=== PATIENT | female | born 1935 | race African-American/Black ===

== ENCOUNTER → 2017-09-18 | Outpatient (CLI) | payer OTHER ==
--- NOTE | 2017-09-18 16:57 | Diagnostic Imaging Report ---
Indication: Abdominal pain Technique: Spiral acquisitions obtained through the abdomen and pelvis. No oral contrast utilized, per referring physician request No IV contrast utilized, per referring physician request.. Multiplanar reconstructions were generated. Total dose length product 649.85 mGycm. CTDIvol(s) 13.68 mGy. Dose reduction achieved using automated exposure control Comparison: None Findings: Lack of enteric contrast limits assessment of the GI tract. There is some edema of the presacral fat. No definite diverticulosis or diverticulitis. The appendix is not definitely identified, but no findings to suggest acute appendicitis are evident. Small bowel loops are diffusely gas filled but nondilated. The distal esophagus demonstrates mild wall thickening. The stomach and duodenum are unremarkable. No free or loculated intraperitoneal air or fluid is evident. Lack of IV contrast limits assessment of the solid organs. The liver, gallbladder, bile ducts, pancreas, spleen, adrenals are unremarkable. There is a right lower pole calyceal calcification. A calcification in the right renal sinus may be vascular or could be in the collecting system. A left renal calcification is probably vascular. No hydronephrosis. No ureteral calculi or hydroureter. Lack of IV contrast limits assessment of the renal parenchyma. No gross renal parenchymal mass or cyst demonstrated. The bladder is unremarkable. The uterus is slightly retroflexed. The endometrium is focally thickened, measuring up to 16 mm thick. No definite myometrial abnormality. No adnexal mass demonstrated. The included lung bases demonstrate posterior dependent atelectatic changes. The bones demonstrate fairly extensive degenerative spondylosis changes. Impression: Slight edema of the presacral fat. This is nonspecific, could be chronic or could indicate proctitis. Correlate with clinical findings Limited assessment of the GI tract due to lack of enteric contrast administration Focally thickened endometrium. Recommend further evaluation with pelvic ultrasound Equivocal mild distal esophageal wall thickening, could indicate esophagitis Renal vascular calcifications versus nonobstructive renal collecting system calculi other findings as noted, including posterior dependent pulmonary atelectatic changes, degenerative spondylosis The CT scanner at [facility] is accredited by the [employer] and the scans are performed using protocols designed to limit radiation exposure to as low as reasonably achievable to attain images of sufficient resolution adequate for diagnostic evaluation.
== END | disposition home or self-care (01) ==
LOC: CAT 16:24
DX: R10.9 Unspecified abdominal pain (principal)
CPT/HCPCS: 74176